=== PATIENT | female | born 1945 | race Caucasian/White ===

== ENCOUNTER → 2017-09-20 17:24 | Outpatient (CLI) | payer OTHER, BC ==
[~2017-09-20 17:24] MED LIST: AXID150 MG; CELEBREX100 MG PO; CLIMARA1 PATCH.W1; KEFLEX250 MG PO; NEXIUM20 MG/PACK; OXYCODONE HCL15 MG PO; PROGESTERONE50 MG/M1; REGLAN5 MG/5 ML; TRAMADOL HCL50 MG PO; ULTRACET PO
== END | disposition home or self-care (01) ==
LOC: RAD 17:24
DX: S42.221A 2-part displaced fracture of surgical neck of right humerus, initial encounter for closed fracture (principal)

== ENCOUNTER 2017-09-22 11:44 | Outpatient (CLI) | payer OTHER, BC ==
[~2017-09-22 11:44] MED LIST changes: -CELEBREX100 MG PO; -KEFLEX250 MG PO; -OXYCODONE HCL15 MG PO; -TRAMADOL HCL50 MG PO
[2017-09-22] MEDS ORDERED: TRAMADOL HCL50 MG PO (16:31)
[2017-09-22] MEDS ORDERED: OXYCODONE HCL15 MG PO (16:31)
[2017-09-22] MEDS ORDERED: CELEBREX100 MG PO (16:32)
[2017-09-22] MEDS ORDERED: KEFLEX250 MG PO (16:32)
== END 2017-09-22 12:00 | disposition home or self-care (01) ==
LOC: LAB 11:44
DX: D64.89 Other specified anemias (principal); E88.89 Other specified metabolic disorders; D68.8 Other specified coagulation defects; N39.0 Urinary tract infection, site not specified; A49.02 Methicillin resistant Staphylococcus aureus infection, unspecified site

== ENCOUNTER 2017-09-26 05:45 | Day surgery (SDC) | payer OTHER, BC ==
[~2017-09-26 05:45] MED LIST changes: +CELEBREX100 MG PO; +KEFLEX250 MG PO; +OXYCODONE HCL15 MG PO; +TRAMADOL HCL50 MG PO
== END 2017-09-26 17:30 | disposition home or self-care (01) ==
LOC: CIR.AMB 05:45
DX: S42.231A 3-part fracture of surgical neck of right humerus, initial encounter for closed fracture (principal); M19.011 Primary osteoarthritis, right shoulder; S46.011A Strain of muscle(s) and tendon(s) of the rotator cuff of right shoulder, initial encounter
CPT/HCPCS: 23615; 23120; 23410; C1776

== ENCOUNTER 2017-10-16 14:25 | Outpatient (CLI) | payer OTHER, BC | END 2017-10-16 14:32 | disposition home or self-care (01) | LOC: RAD 14:25 | DX: S42.231D 3-part fracture of surgical neck of right humerus, subsequent encounter for fracture with routine healing (principal) ==

== ENCOUNTER → 2018-01-15 | Outpatient (CLI) | payer OTHER, BC | END | disposition home or self-care (01) | LOC: RAD 15:35 | DX: S42.231D 3-part fracture of surgical neck of right humerus, subsequent encounter for fracture with routine healing (principal) ==

== ENCOUNTER 2018-02-27 11:58 | Outpatient (CLI) | payer OTHER, BC | END 2018-02-27 12:07 | disposition home or self-care (01) | LOC: LAB 11:58 | DX: E55.9 Vitamin D deficiency, unspecified (principal); M85.9 Disorder of bone density and structure, unspecified; E21.2 Other hyperparathyroidism; M81.8 Other osteoporosis without current pathological fracture; E56.1 Deficiency of vitamin K; E83.42 Hypomagnesemia; E88.89 Other specified metabolic disorders ==

== ENCOUNTER 2018-02-27 13:48 | Outpatient (CLI) | payer OTHER, BC | END 2018-02-27 13:50 | disposition home or self-care (01) | LOC: SONOGRAMA 13:48 | DX: M75.51 Bursitis of right shoulder (principal); S42.231D 3-part fracture of surgical neck of right humerus, subsequent encounter for fracture with routine healing ==

== ENCOUNTER 2018-03-06 10:43 | Outpatient (CLI) | payer OTHER, BC | END 2018-03-06 17:08 | disposition home or self-care (01) | LOC: NUCLEAR 10:43 | DX: M81.0 Age-related osteoporosis without current pathological fracture (principal) ==

== ENCOUNTER 2018-03-27 13:42 | Outpatient (CLI) | payer OTHER, BC | END 2018-03-27 14:00 | disposition home or self-care (01) | LOC: RAD 13:42 | DX: S42.231D 3-part fracture of surgical neck of right humerus, subsequent encounter for fracture with routine healing (principal) ==

== ENCOUNTER 2018-06-28 07:53 | Outpatient (CLI) | payer OTHER, BC | END 2018-06-28 08:03 | disposition home or self-care (01) | LOC: NUCLEAR 07:53 | DX: K21.9 Gastro-esophageal reflux disease without esophagitis (principal); K31.84 Gastroparesis | CPT/HCPCS: 78264; A9541 ==

== ENCOUNTER 2018-09-13 13:14 | Outpatient (CLI) | payer OTHER, BC | END 2018-09-13 15:25 | disposition home or self-care (01) | LOC: RAD 13:14 | DX: R10.9 Unspecified abdominal pain (principal); K81.9 Cholecystitis, unspecified; Z01.810 Encounter for preprocedural cardiovascular examination ==

== ENCOUNTER 2018-10-02 09:41 | Outpatient (CLI) | payer OTHER, BC | END 2018-10-02 09:56 | disposition home or self-care (01) | LOC: SONOGRAMA 09:41 | DX: R10.9 Unspecified abdominal pain (principal); K21.9 Gastro-esophageal reflux disease without esophagitis ==

== ENCOUNTER 2018-12-17 09:48 | Outpatient (CLI) | payer OTHER, BC | END 2018-12-17 09:52 | disposition home or self-care (01) | LOC: RX STUDY 09:48 | DX: K21.0 Gastro-esophageal reflux disease with esophagitis (principal); K44.9 Diaphragmatic hernia without obstruction or gangrene ==

== ENCOUNTER 2019-01-02 15:36 | Inpatient (IN) | payer OTHER, BC ==
[~2019-01-02] VITALS: Ht 162.6 cm; Wt 84.8 kg
[2019-01-04] MEDS ORDERED: OSPHENA60 MG PO (10:04)
[2019-01-04] MEDS ORDERED: [UNRECOGNIZED DRUG - OTHER] PO (10:05)
[2019-01-09] MEDS ORDERED: CHLOR-TRIMETON4 MG PO (09:50)
[2019-01-10] MEDS ORDERED: NEURONTIN300 MG PO (17:29)
[2019-01-10] MEDS ORDERED: GAS RELIEF 8080 MG PO (17:29)
[2019-01-10] MEDS ORDERED: CARAFATE1 GM/10 ML PO (17:30)
[2019-01-10] MEDS ORDERED: PERCOCET 5-3251 EACH PO (17:30)
[2019-01-10] MEDS ORDERED: POLY119PG PO (17:31)
== END 2019-01-10 19:38 | disposition home or self-care (01) | DRG 326 ==
LOC: SURH 01-09 05:55 → O/R 01-09 05:55 → SURH 01-09 16:47
PROVIDERS: ADMIT Surgery
PROC: 0DS64ZZ Reposition Stomach, Percutaneous Endoscopic Approach (ICD-10-PCS; 2019-01-09)
PROC: 0WQF4ZZ Repair Abdominal Wall, Percutaneous Endoscopic Approach (ICD-10-PCS; 2019-01-09)
PROC: 0BUT4JZ Supplement Diaphragm with Synthetic Substitute, Percutaneous Endoscopic Approach (ICD-10-PCS; principal; 2019-01-09 07:00)
DX: K44.0 Diaphragmatic hernia with obstruction, without gangrene (principal); K56.2 Volvulus; K42.9 Umbilical hernia without obstruction or gangrene; K21.0 Gastro-esophageal reflux disease with esophagitis

== ENCOUNTER 2020-04-30 10:07 | Outpatient (CLI) | payer OTHER, BC ==
[~2020-04-30 10:07] MED LIST changes: +CARAFATE1 GM/10 ML PO; +CHLOR-TRIMETON4 MG PO; +GAS RELIEF 8080 MG PO; +NEURONTIN300 MG PO; +OSPHENA60 MG PO; +PERCOCET 5-3251 EACH PO; +POLY119PG PO; +[UNRECOGNIZED DRUG - OTHER] PO
== END 2020-04-30 10:16 | disposition home or self-care (01) ==
LOC: RAD 10:07
PROVIDERS: ATTEND Ophthalmology
DX: H25.89 Other age-related cataract (principal); Z98.49 Cataract extraction status, unspecified eye

== ENCOUNTER → 2021-02-08 | Outpatient (CLI) | payer OTHER | END | disposition home or self-care (01) | LOC: MRI 15:23 | PROVIDERS: ATTEND General Practice | DX: M54.42 Lumbago with sciatica, left side (principal); M54.16 Radiculopathy, lumbar region; G89.4 Chronic pain syndrome | CPT/HCPCS: 72148 ==

== ENCOUNTER 2021-06-17 10:53 | Outpatient (CLI) | payer OTHER | END 2021-06-17 11:05 | disposition home or self-care (01) | LOC: MAMO-SONO 10:53 | PROVIDERS: ATTEND Obstetrics & Gynecology Gynecology | DX: N64.4 Mastodynia (principal); Z12.31 Encounter for screening mammogram for malignant neoplasm of breast ==

== ENCOUNTER 2021-09-21 11:34 | Outpatient (CLI) | payer OTHER | END 2021-09-21 11:37 | disposition home or self-care (01) | LOC: RAD 11:34 | PROVIDERS: ATTEND Obstetrics & Gynecology Gynecology | DX: R05.8 Other specified cough (principal) ==

== ENCOUNTER 2022-09-05 11:04 | Outpatient (CLI) | payer OTHER | END 2022-09-05 11:15 | disposition home or self-care (01) | LOC: MAMO-SONO 11:04 | PROVIDERS: ATTEND Obstetrics & Gynecology Gynecology | DX: N64.4 Mastodynia (principal) ==

== ENCOUNTER 2023-09-11 11:39 | Outpatient (CLI) | payer OTHER, BC | END 2023-09-11 11:54 | disposition home or self-care (01) | LOC: MAMO-SONO 11:39 | PROVIDERS: ATTEND Obstetrics & Gynecology Gynecology | DX: N64.4 Mastodynia (principal); Z12.31 Encounter for screening mammogram for malignant neoplasm of breast ==

== ENCOUNTER → 2024-10-02 | Outpatient (CLI) | payer OTHER, BC | END | disposition home or self-care (01) | LOC: MAMO-SONO 11:58 | PROVIDERS: ATTEND Obstetrics & Gynecology Gynecology | DX: N64.4 Mastodynia (principal); Z12.31 Encounter for screening mammogram for malignant neoplasm of breast ==